=== PATIENT | female | born 1955 | race Caucasian/White ===

== ENCOUNTER → 2024-01-06 15:43 | Outpatient (REF) | payer MEDICARE, OTHER, SELFPAY | LOC: WDC 15:43 | PROVIDERS: ATTENDING PHYSICIAN Surgery; FAMILY PHYSICIAN Family Medicine | DX: Z12.31 Encounter for screening mammogram for malignant neoplasm of breast (principal); C50.412 Malignant neoplasm of upper-outer quadrant of left female breast | CPT/HCPCS: 77063; 77067 ==

== ENCOUNTER → 2024-01-10 09:55 | Outpatient (REF) | payer MEDICARE, OTHER, SELFPAY | LOC: WDC 09:55 | PROVIDERS: ATTENDING PHYSICIAN Surgery; FAMILY PHYSICIAN Family Medicine | DX: R92.8 Other abnormal and inconclusive findings on diagnostic imaging of breast (principal) | CPT/HCPCS: 77065 ==

== ENCOUNTER → 2025-01-06 12:59 | Outpatient (REF) | payer MEDICARE, OTHER, SELFPAY | LOC: WDC 12:59 | PROVIDERS: ATTENDING PHYSICIAN Family Medicine Geriatric Medicine; FAMILY PHYSICIAN Family Medicine | DX: M85.80 Other specified disorders of bone density and structure, unspecified site (principal); M81.0 Age-related osteoporosis without current pathological fracture; Z12.31 Encounter for screening mammogram for malignant neoplasm of breast | CPT/HCPCS: 77063; 77067; 77080 ==

== ENCOUNTER → 2025-08-23 12:47 | Outpatient (REF) | payer MEDICARE, OTHER, SELFPAY | LOC: WDC 12:47 | PROVIDERS: ATTENDING PHYSICIAN Family Medicine Geriatric Medicine; FAMILY PHYSICIAN Family Medicine | DX: R92.333 Mammographic heterogeneous density, bilateral breasts (principal) | CPT/HCPCS: 76641 ==